=== PATIENT | female | born 1955 | race Caucasian/White ===

== ENCOUNTER 2021-08-15 18:19 | Emergency (ER) | payer MEDICARE, OTHER ==
[2021-08-15 18:53] LABS: BASOPHIL 0.5 % (0-2); EOSINOPHIL 1.4 % (0-7); HCT 35.2 % (37.0-47.0); HGB 10.8 g/dl (12.5-16.0); LYMPHOCYTE 18.5 % (15-48); MCHC 30.7 g/dL (32.0-36.0); MCV 84.6 fL (78.0-100.0); MONOCYTE 7.1 % (0-12); MPV 9.7 fL (6.0-9.5); NEUTROPHIL 72.1 % (41-80); NRBC 0; PLT 305 K/uL (150-400); RBC 4.16 M/uL (4.20-5.40); RDW 14.6 % (11.5-14.0); WBC 8.1 K/uL (4.0-10.5)
[2021-08-15 18:56] LABS: BILIRUBIN NEGATIVE (NEGATIVE); BLOOD 3+ Ery/uL (NEGATIVE); CLARITY CLEAR (CLEAR); COLOR YELLOW (YELLOW); GLUCOSE (U) NORMAL (NORMAL); LEUKOCYTES TRACE Leu/uL (NEGATIVE); NITRITE POSITIVE (NEGATIVE); PROTEIN 2+ mg/dL (NEGATIVE); SPECIFIC GRAVITY >=1.030 (1.001-1.030); UROBILINOGEN 0.2 mg/dL (0.2-1.0)
[2021-08-15 19:01] LABS: AMORPHOUS URATES CRYSTALS LARGE; BACTERIA 1+; URINARY RBC 20-50; URINARY WBC RARE
[2021-08-15 19:15] LABS: BUN/CREAT RATIO (CALC) 23.5 RATIO; CREATININE 1.02 mg/dL (0.51-0.95); POTASSIUM 4.2 mmol/L (3.5-5.1)
[2021-08-15 20:24] LABS: BILIRUBIN 1+ mg/dL (NEGATIVE); BLOOD 3+ Ery/uL (NEGATIVE); CLARITY CLEAR (CLEAR); COLOR YELLOW (YELLOW); GLUCOSE (U) NORMAL (NORMAL); LEUKOCYTES NEGATIVE Leu/uL (NEGATIVE); NITRITE NEGATIVE (NEGATIVE); PROTEIN 1+ mg/dL (NEGATIVE); SPECIFIC GRAVITY >=1.030 (1.001-1.030); UROBILINOGEN 0.2 mg/dL (0.2-1.0); pH 5.5 (5.0-9.0)
[2021-08-15 20:35] LABS: AMORPHOUS URATES CRYSTALS MODERATE; BACTERIA TRACE; URINARY RBC TNTC; URINARY WBC RARE
[2021-08-15] MEDS ORDERED: OXY-IR 5MG5 MG PO (20:58)
[2021-08-15] MEDS ORDERED: ONDANSETRON ODT4 MG PO (20:58)
== END 2021-08-15 21:15 | disposition home or self-care (01) ==
LOC: FER 18:19
PROVIDERS: Emergency Medicine
DX: N13.2 Hydronephrosis with renal and ureteral calculous obstruction (principal); E11.9 Type 2 diabetes mellitus without complications; Z79.84 Long term (current) use of oral hypoglycemic drugs; Z88.7 Allergy status to serum and vaccine
CPT/HCPCS: 36415; 80048; 81001; 85025; 87088; J1170; J1885; J2405